=== PATIENT | male | born 1980 | race Caucasian/White ===

== ENCOUNTER 2017-12-21 14:11 | Emergency (ER) | payer SELFPAY ==
[~2017-12-21] VITALS: Ht 172.7 cm; Wt 124.7 kg
--- NOTE | 2017-12-21 14:28 | ED Lower Extremity ---
General Chief Complaint: Lower Extremity Stated Complaint: L LEG PAIN Nursing Triage Note: PATIENT HERE AFTER VISITING THE CLINIC IN [place] FOR LEFT LOWER LEG PAIN THAT HIS BEEN GOING ON SINCE OCTOBER. IT WAS REQUESTED THAT HE COME HERE FOR EVALUATION. HIS PAIN IS IN HIS LEFT CALF AND IS WORSE WITH COUGHING SNEEZING OR STRAINING OF ANY KIND. NO REDNESS OR OBVIOUS SIGNS OF INJURY. Nursing Sepsis Screen: No Definite Risk Source: patient Exam Limitations: no limitations History of Present Illness Date Seen by Provider: Dec 21, 2017 Time Seen by Provider: 14:26 Initial Comments to ER with progressively worsening left calf pain since October of this year. States he was stepping down off of a checker loader and twisted and initially had some very mild pain in the left calf, pain has worsened since then. He now walks with a limp. Occasionally the pain radiates up into the left posterolateral thigh and he does have some back pain. He does feel like his leg swells a bit at times. Onset: other Severity: moderate Pain/Injury Location: left leg Method of Injury: twisted Modifying Factors: Worse With Movement Allergies and Home Medications Home Medications Cyclobenzaprine HCl 5 Mg Tablet, 5 MG PO TID PRN for PAIN-MODERATE TO SEVERE Prescribed by: PRUDENCE HALEY on 12/21/17 1529 Naproxen 500 Mg Tablet, 500 MG PO BID PRN for PAIN-MODERATE TO SEVERE Prescribed by: PRUDENCE HALEY on 12/21/17 1529 Patient Home Medication List Home Medication List Reviewed: Yes Constitutional: see HPI EENTM: see HPI Respiratory: no symptoms reported Cardiovascular: no symptoms reported Genitourinary: no symptoms reported Musculoskeletal: see HPI, back pain Skin: no symptoms reported Psychiatric/Neurological: No Symptoms Reported Past Gmtmemq-[id number]-Qhkmpn Hx Patient Social History Recent Foreign Travel: No Contact w/Someone Who Travel: No Recent Infectious Disease Expo: No Physical Exam Vital Signs Vital Signs - First Documented 12/21/17 14:15 Temp 98.1 Pulse 84 Resp 18 B/P (MAP) 125/92 (103) Pulse Ox 95 Capillary Refill : Less Than 3 Seconds General Appearance: WD/WN, no apparent distress HEENT: PERRL/EOMI, normal ENT inspection Neck: non-tender, full range of motion Respiratory: no respiratory distress, no accessory muscle use Gastrointestinal: normal bowel sounds, non tender Hips: bilateral hip non-tender, bilateral hip normal inspection, bilateral hip normal range of motion Legs: right leg non-tender; bilateral leg normal inspection, bilateral leg normal range of motion; left leg other (left calf has tenderness to palpationbbut there is no erythema ecchymosis or deformity) Knees: bilateral knee non-tender, bilateral knee normal inspection, bilateral knee no evidence of injury Ankles: bilateral ankle non-tender, bilateral ankle normal inspection, bilateral ankle normal range of motion Feet: bilateral foot non-tender, bilateral foot normal inspection, bilateral foot normal range of motion Neurologic/Psychiatric: alert, normal mood/affect, oriented x 3 Skin: normal color, warm/dry Progress/Results/Core Measures Results/Orders Lab Results Laboratory Tests Test 12/21/17 14:30 Range/Units White Blood Count 9.6 4.3-11.0 10^3/uL Red Blood Count 5.60 4.35-5.85 10^6/uL Hemoglobin 16.7 13.3-17.7 G/DL Hematocrit 47 40-54 % Mean Corpuscular Volume 84 80-99 FL Mean Corpuscular Hemoglobin 30 25-34 PG Mean Corpuscular Hemoglobin Concent 36 32-36 G/DL Red Cell Distribution Width 14.4 10.0-14.5 % Platelet Count 261 130-400 10^3/uL Mean Platelet Volume 10.6 H 7.4-10.4 FL Neutrophils (%) (Auto) 69 42-75 % Lymphocytes (%) (Auto) 23 12-44 % Monocytes (%) (Auto) 7 0-12 % Eosinophils (%) (Auto) 1 0-10 % Basophils (%) (Auto) 0 0-10 % Neutrophils # (Auto) 6.7 1.8-7.8 X 10^3 Lymphocytes # (Auto) 2.2 1.0-4.0 X 10^3 Monocytes # (Auto) 0.6 0.0-1.0 X 10^3 Eosinophils # (Auto) 0.1 0.0-0.3 10^3/uL Basophils # (Auto) 0.0 0.0-0.1 10^3/uL D-Dimer 0.36 0.00-0.49 UG/ML Sodium Level 139 135-145 MMOL/L Potassium Level 3.7 3.6-5.0 MMOL/L Chloride Level 109 H 98-107 MMOL/L Carbon Dioxide Level 21 21-32 MMOL/L Anion Gap 9 5-14 MMOL/L Blood Urea Nitrogen 9 7-18 MG/DL Creatinine 0.87 0.60-1.30 MG/DL Estimat Glomerular Filtration Rate > 60 BUN/Creatinine Ratio 10 Glucose Level 109 H 70-105 MG/DL Calcium Level 11.3 H 8.5-10.1 MG/DL Total Bilirubin 0.4 0.1-1.0 MG/DL Aspartate Amino Transf (AST/SGOT) 14 5-34 U/L Alanine Aminotransferase (ALT/SGPT) 20 0-55 U/L Alkaline Phosphatase 58 40-136 U/L Total Protein 7.3 6.4-8.2 GM/DL Albumin 4.1 3.2-4.5 GM/DL My Orders Orders - PRUDENCE HALEY APRN Cbc With Automated Diff (12/21/17 14:19) Comprehensive Metabolic Panel (12/21/17 14:19) Tibia/Fibula, Left, 2 Views (12/21/17 14:19) Fibrin Degradation Products (12/21/17 14:19) Vital Signs/I&O 12/21/17 14:15 Temp 98.1 Pulse 84 Resp 18 B/P (MAP) 125/92 (103) Pulse Ox 95 Blood Pressure Mean: 103 Departure Communication (Admissions) there is a BB in the left calf. Patient states this is been present since the age of 12 or 13. Impression Primary Impression: Pain of left calf Additional Impression: Sciatica Disposition: 01 HOME, SELF-CARE Condition: Stable Departure-Patient Inst. Decision time for Depature: 15:19 Referrals: NO,LOCAL PHYSICIAN (PCP/Family) Primary Care Physician Patient Instructions: Radiculopathy (DC) Add. Discharge Instructions: 1. Return to ER for any concerns 2. Follow-up with your doctor next weekfor further evaluation. 3.All discharge instructions reviewed with patient and/or family. Voiced understanding. Scripts Cyclobenzaprine HCl (Cyclobenzaprine HCl) 5 Mg Tablet 5 MG PO TID PRN for PAIN-MODERATE TO SEVERE, #21 TAB Prov: PRUDENCE HALEY APRN 12/21/17 Naproxen (Naprosyn) 500 Mg Tablet 500 MG PO BID PRN for PAIN-MODERATE TO SEVERE, #20 TAB Prov: PRUDENCE HALEY APRN 12/21/17 PRUDENCE HALEY APRN Dec 21, 2017 14:28
[2017-12-21 14:37] LABS: BASOPHILS % (AUTO) 0 % (0-10); EOSINOPHILS # (AUTO) 0.1 10^3/uL (0.0-0.3); EOSINOPHILS % (AUTO) 1 % (0-10); HEMATOCRIT 47 % (40-54); HEMOGLOBIN 16.7 G/DL (13.3-17.7); LYMPHOCYTES # (AUTO) 2.2 X 10^3 (1.0-4.0); LYMPHOCYTES % (AUTO) 23 % (12-44); MEAN CORPUSCULAR HEMOGLOBIN 30 PG (25-34); MEAN CORPUSCULAR HGB CONC 36 G/DL (32-36); MEAN CORPUSCULAR VOLUME 84 FL (80-99); MEAN PLATELET VOLUME 10.6 FL (7.4-10.4); MONOCYTES # (AUTO) 0.6 X 10^3 (0.0-1.0); MONOCYTES % (AUTO) 7 % (0-12); NEUTROPHILS # (AUTO) 6.7 X 10^3 (1.8-7.8); NEUTROPHILS % (AUTO) 69 % (42-75); PLATELET COUNT 261 10^3/uL (130-400); RED CELL DISTRIBUTION WIDTH 14.4 % (10.0-14.5); WHITE BLOOD COUNT 9.6 10^3/uL (4.3-11.0)
[2017-12-21 14:53] LABS: ALANINE AMINOTRANSFERASE 20 U/L (0-55); ALBUMIN 4.1 GM/DL (3.2-4.5); ALKALINE PHOSPHATASE 58 U/L (40-136); BILIRUBIN,TOTAL 0.4 MG/DL (0.1-1.0); BUN/CREATININE RATIO 10; CALCIUM 11.3 MG/DL (8.5-10.1); CARBON DIOXIDE 21 MMOL/L (21-32); CHLORIDE 109 MMOL/L (98-107); CREATININE SERUM 0.87 MG/DL (0.60-1.30); GFR ESTIMATED > 60; GLUCOSE 109 MG/DL (70-105); POTASSIUM 3.7 MMOL/L (3.6-5.0); SODIUM 139 MMOL/L (135-145); TOTAL PROTEIN 7.3 GM/DL (6.4-8.2)
--- NOTE | 2017-12-21 15:18 | Diagnostic Imaging Report ---
INDICATION: Injury of the left lower leg. TECHNIQUE: 2 views of the left tibia/fibula COMPARISON: None FINDINGS: No acute fracture or dislocation is seen in the left tibia/fibula. Alignment appears normal. The visualized joint spaces are preserved. There is mild soft tissue edema about the left lower leg distally. There is a metal BB in the soft tissues of the left calf. IMPRESSION: 1. No acute osseous anomaly seen in the left tibia/fibula. There is mild distal soft tissue edema. 2. Metal BB in the soft tissues of the calf. Dictated by: Dictated on workstation # [id number]
[2017-12-21] MEDS ORDERED: CYCL5TAB PO (15:29)
[2017-12-21] MEDS ORDERED: NAPR-1071 PO (15:29)
[2017-12-21 15:45] VITALS: BP 125/92
== END 2017-12-21 15:45 | disposition home or self-care (01) ==
LOC: EDUNIT# 14:11 → ER 14:13
DX: M54.32 Sciatica, left side (principal)
CPT/HCPCS: 36415; 73590; 80053; 85025; 85379

== ENCOUNTER → 2017-12-24 | Outpatient (CLI) | payer SELFPAY ==
[~2017-12-24] MED LIST: CYCL5TAB PO; NAPR-1071 PO
--- NOTE | 2017-12-24 18:58 | Diagnostic Imaging Report ---
PROCEDURE: US left lower extremity venous. TECHNIQUE: Multiple real-time grayscale images were obtained over the left lower extremity in various projections. Additional duplex Doppler and color Doppler images were also obtained. INDICATION: Left leg injury and pain. There is no evidence of a left lower extremity DVT. Left lower extremity deep venous system shows normal compressibility with normal response to augmentation and Valsalva. No fluid collection or mass is seen. IMPRESSION: No evidence of left lower extremity DVT. Dictated by: Dictated on workstation # [id number]
== END ==
LOC: RAD 17:20
PROVIDERS: ATTEND Nurse Practitioner Family
DX: S89.92XA Unspecified injury of left lower leg, initial encounter (principal)

== ENCOUNTER → 2018-03-18 | Outpatient (CLI) | payer OTHER ==
--- NOTE | 2018-03-18 12:13 | Diagnostic Imaging Report ---
PROCEDURE: MR imaging left lower extremity without contrast. TECHNIQUE: Multiplanar, multisequence non contrast enhanced MR imaging of the left lower extremity was accomplished. INDICATION: Twisted left knee and left calf. Left knee and left calf pain. FINDINGS: There is a large amount of artifact in the soft tissues of the upper left calf and left knee region medially. This is presumably from unknown BB foreign body in the soft tissues. This does significantly compromise evaluation of these areas. Visualized marrow signal intensity of the tibia and fibula appears normal. No marrow edema, fracture or marrow lesion is identified. No abnormal signal in the visualized areas of the left calf are identified. No definite muscle edema is seen. No superficial or deep soft tissue fluid collection or mass is identified. Subcutaneous tissues are unremarkable. IMPRESSION: There is a large amount of artifact in the medial left calf and left knee region from a BB foreign body. No significant abnormality is detected. Dictated by: Dictated on workstation # [id number]
--- NOTE | 2018-03-18 12:58 | Diagnostic Imaging Report ---
PROCEDURE: MRI left joint lower extremity without contrast. TECHNIQUE: Multiplanar, multisequence non contrast-enhanced MRI of the left lower extremity was accomplished. INDICATION: Injury, knee pain. FINDINGS: There are no previous MRI examinations available for comparison. The plain film examination of the left tibia and fibula performed on 12/21/2017 failed to show any sign of an acute bony abnormality. There was a small metallic BB in the soft tissues of the calf, however. On the sagittal proton-dense series, there is no abnormal signal arising from either meniscus to suggest a tear. The anterior and posterior cruciate ligaments, the quadriceps and infrapatellar tendons are intact. The STIR series does show diffusely increased signal along the anterior aspect of the patella and the infrapatellar tendon, however. This does suggest edema/inflammation. There is also edema/inflammation about the medial collateral ligament, but the MCL seems to be intact. The fibular collateral ligament, the biceps femoris tendon, and the iliotibial band are generally unremarkable. The medial and lateral retinacula are intact. The knee joint itself is fairly well maintained. There is no abnormal signal arising from the osseous structures to suggest bone edema or a fracture. There is a small joint effusion present. There is also some fluid in the semimembranosus bursa. The presence of the fluid does suggest that there is an element of bursitis present. IMPRESSION: 1. There is considerable edema/inflammation in the soft tissues along the anterior aspect of the patella and the infrapatellar tendon. However, the infrapatellar tendon appears to be intact. The other major ligaments and tendon show no sign of an acute injury, and there is no evidence for a tear of either meniscus. 2. There is no sign of an acute bony abnormality. 3. There is a small joint effusion present. The fluid in the semimembranosus bursa also suggests that there is an element of mild bursitis present. Dictated by: Dictated on workstation # [id number]
== END ==
LOC: RAD 08:25
PROVIDERS: ATTEND Family Medicine
DX: S89.92XA Unspecified injury of left lower leg, initial encounter (principal); X50.1XXA Overexertion from prolonged static or awkward postures, initial encounter
CPT/HCPCS: 73721